=== PATIENT | female | born 1975 ===

== ENCOUNTER 2019-05-12 13:50 | Emergency (ER) | payer OTHER ==
[~2019-05-12] VITALS: Ht 154.9 cm; Wt 68.9 kg
[2019-05-12] MEDS ORDERED: NORVASC5 MG (14:15)
[2019-05-12] MEDS ORDERED: LOSARTAN POTASS25 MG (14:15)
== END 2019-05-12 17:27 | disposition home or self-care (01) ==
LOC: ER 13:50
DX: S90.111A Contusion of right great toe without damage to nail, initial encounter (principal); W22.8XXA Striking against or struck by other objects, initial encounter; Y93.89 Activity, other specified; Y92.098 Other place in other non-institutional residence as the place of occurrence of the external cause; Y99.8 Other external cause status